=== PATIENT | female | born 1975 | race Caucasian/White ===

== ENCOUNTER 2019-06-22 07:33 | Day surgery (SDC) | payer OTHER ==
[2019-06-22] MEDS ORDERED: Lactated Ringers 1,000 ML IV SCH (08:00)
[2019-06-22] MEDS ORDERED: Propofol 200 MG/20 ML SDV ONE ×2 (08:53→09:14)
[2019-06-22] MEDS ORDERED: fentaNYL 100 MCG/2 ML SDV ONE (08:53)
[2019-06-22] MEDS ORDERED: Midazolam 1 MG/ML 2 ML SDV ONE (08:53)
[2019-06-22] MEDS ORDERED: Atropine 0.4 MG/ML SDV ONE (10:04)
--- NOTE | 2019-06-22 13:09 | OR ---
DATE OF PROCEDURE: 06/22/2019 SURGEON: Landon Salas MD PREOPERATIVE DIAGNOSES: Resolved diverticulitis, grandmother with colon cancer. POSTOPERATIVE DIAGNOSES: Diverticulosis, grandmother with colon cancer. PROCEDURE: Colonoscopy to the cecum. ANESTHESIA: IV anesthesia with monitored anesthesia care. INDICATION: This 44-year-old white female is here for a colonoscopy. She has resolved diverticulitis. She has a family history of colon cancer in that her grandmother had colon cancer. I counseled her for the procedure including risks and alternatives, and she gave her informed consent to proceed. DESCRIPTION OF PROCEDURE: The patient was placed in the left lateral decubitus position. IV anesthesia was administered by the Anesthesia Service. Time-out was held. A rectal exam was performed, which was unremarkable. The flexible video Olympus colonoscope was introduced through her anus, up her rectum, and out her colon all the way to the cecum. En route, we saw a few scattered left-sided diverticula. There was no bleeding or inflammation associated with any of them at this time. Once the cecum was reached, the scope was slowly withdrawn examining the mucosa throughout. No additional mucosal abnormalities were noted. The scope was retroflexed in the rectum with the distal rectum appearing unremarkable. The scope was straightened and removed. She tolerated the procedure well. Landon Salas MD /[id number]
== END 2019-06-22 12:10 | disposition home or self-care (01) ==
LOC: JP.SDS 07:33
PROVIDERS: ATTEND Surgery
DX: Z12.11 Encounter for screening for malignant neoplasm of colon (principal); K57.30 Diverticulosis of large intestine without perforation or abscess without bleeding; K21.9 Gastro-esophageal reflux disease without esophagitis; Z80.0 Family history of malignant neoplasm of digestive organs; Z91.09 Other allergy status, other than to drugs and biological substances
CPT/HCPCS: 45378; J2250; J2704; J3010; J7120; J0461